=== PATIENT | female | born 1995 | race Two or more races ===

== ENCOUNTER 2022-01-19 15:27 | Emergency (ER) | payer OTHER ==
[2022-01-19 16:23] LABS: BILIRUBIN NEGATIVE (NEGATIVE); BLOOD 1+ Ery/uL (NEGATIVE); CLARITY CLEAR (CLEAR); COLOR YELLOW (YELLOW); GLUCOSE (U) NORMAL (NORMAL); LEUKOCYTES NEGATIVE Leu/uL (NEGATIVE); NITRITE NEGATIVE (NEGATIVE); PROTEIN NEGATIVE (NEGATIVE); pH 6.5 (5.0-9.0)
[2022-01-19 16:32] LABS: URINARY WBC RARE
[2022-01-19 16:33] LABS: BACTERIA TRACE; SQUAMOUS EPITHELIAL CELLS 20-50
[2022-01-19 17:38] LABS: BASOPHIL 0.8 % (0-2); EOSINOPHIL 0.2 % (0-5); HCT 41.1 % (37.0-47.0); HGB 13.5 g/dl (12.5-16.0); LYMPHOCYTE 29.2 % (15-48); MCH 29.2 pg (25.0-31.0); MCHC 32.8 g/dL (32.0-36.0); MPV 10.1 fL (6.0-9.5); NEUTROPHIL 61.3 % (41-80); NRBC 0; PLT 170 K/uL (150-400); RBC 4.62 M/uL (4.20-5.40); RDW 11.9 % (11.5-14.0); WBC 6.5 K/uL (4.0-10.5)
[2022-01-19 18:23] LABS: ACETAMINOPHEN (TYLENOL) < 2.0 ug/mL (10.0-30.0); BUN 8 mg/dL (7-18); BUN/CREAT RATIO (CALC) 12.9 RATIO; CHLORIDE 105 mmol/L (98-107); CO2 (BICARBONATE) 29 mmol/L (21-32); CREATININE 0.62 mg/dL (0.51-0.95); GLUCOSE 90 mg/dL (74-106); POTASSIUM 4.1 mmol/L (3.5-5.1)
[2022-01-19 20:42] LABS: CORONAVIRUS 2019 SARS-COV-2 NEGATIVE (NEGATIVE); INFLUENZA A NAA NEGATIVE (NEGATIVE)
[2022-01-19 21:04] LABS: ECSTASY (MDMA) NEGATIVE (NEGATIVE); MARIJUANA (THC) NEGATIVE (NEGATIVE); METHADONE NEGATIVE (NEGATIVE); OPIATES NEGATIVE (NEGATIVE)
[2022-01-19 21:05] LABS: AMPHETAMINES NEGATIVE (NEGATIVE); BARBITURATES NEGATIVE (NEGATIVE); OXYCODONE NEGATIVE (NEGATIVE)
== END 2022-01-19 22:33 | disposition home or self-care (01) ==
LOC: FER 15:27
PROVIDERS: Emergency Medicine; Physician Assistant
DX: F31.9 Bipolar disorder, unspecified (principal); Z91.51 Personal history of suicidal behavior; Z20.822 Contact with and (suspected) exposure to COVID-19
CPT/HCPCS: 36415; 80048; 80305; 81001; 84439; 84443; 85025; 99284; G0480; U0002